=== PATIENT | male | born 1985 | race Caucasian/White ===

== ENCOUNTER 2017-03-31 20:30 | Emergency (ER) | payer SELFPAY ==
[2017-03-31 20:32] VITALS: BP 158/103; PULSE 92; RESP 20; TEMP 98.9; O2SAT 97
--- NOTE | 2017-03-31 21:13 | PD ---
HPI Chief Complaint: Lump, Cyst, Hernia Time Seen by Provider: 21:03 Travel History International Travel<30 days: No Contact w/Intl Traveler<30days: No Traveled to known affect area: No History of Present Illness HPI 31-year-old male presents to the emergency room for evaluation of abscess to his neck that has been present for the past 2 weeks. Patient states he has history of abscesses in the same location many years ago. States it is extremely painful and makes it difficult for him to sleep. He denies drainage, fever, chills, nausea, vomiting. No chronic medical conditions or daily medications. [facility] Social History Tobacco Use: Yes Allergies-Medications (Allergen,Severity, Reaction): Coded Allergies: No Known Allergies (Verified Allergy, Unknown, 03/31/17) Reported Meds & Prescriptions Reported Meds & Active Scripts Active Bactrim DS (Sulfamethoxazole-Trimethoprim) 800-160 Mg Tab 1 Tab PO BID Review of Systems Except as stated in HPI: all other systems reviewed are Neg Physical Exam Narrative GENERAL: Well-nourished, well-developed male in no acute distress. Afebrile. Ambulatory. SKIN: Focused skin assessment warm/dry. There is an indurated area in the left posterior neck which measures about 3 cm in diameter. It is fluctuant but there is no pointing or drainage. There is a zone of inflammation around it but no lymphangitis. HEAD: Normocephalic. EYES: No scleral icterus. No injection or drainage. NECK: Supple, trachea midline. No JVD or lymphadenopathy. CARDIOVASCULAR: Regular rate and rhythm without murmurs, gallops, or rubs. RESPIRATORY: Breath sounds equal bilaterally. No accessory muscle use. PSYCHIATRIC: No delusional thought processes. No hallucinations. Data Data Last Documented VS Vital Signs Date Time Temp Pulse Resp B/P Pulse Ox O2 Delivery O2 Flow Rate FiO2 03/31/17 20:32 98.9 92 20 158/103 97 Orders Lidocaine 1% Inj (50 Ml) (Xylocaine 1% I (03/31/17 21:15) Wound Culture And Gram Stain (03/31/17 21:43) [facility] Medical Decision Making Medical Screen Exam Complete: Yes Emergency Medical Condition: Yes Medical Record Reviewed: Yes Differential Diagnosis Abscess, folliculitis, hidradenitis suppurativa Narrative Course 31-year-old male presents to the emergency room for evaluation of a recurrent abscess to his left posterior neck that started about 2 weeks ago. Patient is afebrile and well-appearing in the emergency room. Vital signs stable. Physical exam reveals a large 3 cm abscess to the left posterior neck that is extremely fluctuant. No lymphangitis. Full range of motion of the neck. Abscess was drained, see procedure for details. Patient discharged with prescription for Bactrim and told to follow up with her primary care physician or return for worsening symptoms. He understands and agrees plan. Procedures Procedure Narrative INCISION AND DRAINAGE OF ABSCESS: The area was prepped and was sterilely draped. A subcutaneous wheal of 1% lidocaine with a total number 2 mL was used to anesthetize the area properly. A number 11 scalpel was used to make a 1 cm incision across the area of the abscess. The abscess was drained, complex loculations were broken down, and irrigated with normal saline. Cultures were obtained. Quarter inch iodoform packing was placed in the wound. Sterile dressing applied. Patient advised to have packing removed in two days. Diagnosis Primary Impression: Abscess Referrals: Primary Care Physician Patient Instructions: Abscess (ED), General Instructions Additional Instructions: Rest and drink plenty of fluids. Take Bactrim as directed, until gone. Return to the emergency room in 2 days to have packing removed. If it falls out before, this is okay. Follow up with a primary care physician. Return to emergency room for worsening symptoms, as discussed. Med/Other Pt SpecificInfo: Prescription(s) given Scripts Sulfamethoxazole-Trimethoprim (Bactrim DS)800-160 Mg Tab1 Tab PO BID #20 TAB Ref 0 Prov:Amor Viveros MD 03/31/17 Disposition: 01 DISCHARGE HOME Condition: Stable Sondra Santiago Mar 31, 2017 21:13
[2017-03-31] MEDS ORDERED: LIDOCAINE HCL 1% 50 ML VIAL INFIL ONE (21:15)
[2017-03-31] MEDS ORDERED: BACT800T5 PO (21:44)
== END 2017-03-31 21:50 | disposition home or self-care (01) ==
LOC: PHED 20:30 → PHEFT 21:50
DX: L02.11 Cutaneous abscess of neck (principal); Z72.0 Tobacco use
CPT/HCPCS: 10061; 86403; 87070; 87205; 99283

== ENCOUNTER 2017-05-19 17:20 | Emergency (ER) | payer OTHER ==
[~2017-05-19] VITALS: Ht 185.4 cm; Wt 123.0 kg
[~2017-05-19 17:20] MED LIST: BACT800T5 PO
[2017-05-19 17:21] VITALS: BP 167/94; PULSE 106; RESP 16; TEMP 98.3; O2SAT 97
[2017-05-19] MEDS ORDERED: IOHEXOL 350 MG/ML 10 ML VIAL (for RAD DIAG) IVCONTRAST ONE (17:21)
[2017-05-19] MEDS ORDERED: SODIUM CHLORIDE 0.9% FLUSH 10 ML FLUSH IVF PRN (18:30)
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
[2017-05-19] MEDS ORDERED: ROBA500T PO (21:14)
[2017-05-19] MEDS ORDERED: KETOROLAC TROMETHAMINE 60 MG/2 ML (IM) VIAL IM ONE (21:15)
[2017-05-19] MEDS ORDERED: ORPHENADRINE INJ 60 MG/2 ML AMP IM ONE (21:30)
== END 2017-05-19 21:26 | disposition home or self-care (01) ==
LOC: PHEFT 17:20
DX: S16.1XXA Strain of muscle, fascia and tendon at neck level, initial encounter (principal); S30.1XXA Contusion of abdominal wall, initial encounter; V43.52XA Car driver injured in collision with other type car in traffic accident, initial encounter; Y92.410 Unspecified street and highway as the place of occurrence of the external cause; I10 Essential (primary) hypertension
CPT/HCPCS: 71010; 72125; 74177; 96372; 99285; J1885; J2360; L0150; Q9967